=== PATIENT | female | born 1945 | race Caucasian/White ===

== ENCOUNTER → 2017-09-25 | Outpatient (CLI) | payer OTHER | END | disposition home or self-care (01) | LOC: PCVCIMAG 13:03 | DX: I08.0 Rheumatic disorders of both mitral and aortic valves (principal); I10 Essential (primary) hypertension; R00.2 Palpitations; E78.00 Pure hypercholesterolemia, unspecified; R53.83 Other fatigue; R94.31 Abnormal electrocardiogram [ECG] [EKG]; Z87.891 Personal history of nicotine dependence; Z79.899 Other long term (current) drug therapy; Z79.82 Long term (current) use of aspirin | CPT/HCPCS: 80061; 93005; 93306; G0463 ==

== ENCOUNTER → 2017-10-19 | Outpatient (CLI) | payer OTHER ==
[~2017-10-19] MED LIST: BENZOCAINE ONE 20% MUCOSAL SPRAY.; IOHEXOL 350 MG/ML 100 ML VIAL.; IOHEXOL 350 MG/ML 50 ML VIAL.; IV NORMAL SALINE 500ML BAG 500 ML; LIDOCAINE 1% Multi-Dose 50 ML VIAL.; MIDAZOLAM HCL/PF 2 MG/2 ML VIAL.; fentaNYL PF VIAL 100 MCG/2 ML VIAL
== END | disposition home or self-care (01) ==
LOC: PCVCINTER 08:59
DX: I25.10 Atherosclerotic heart disease of native coronary artery without angina pectoris (principal); I08.3 Combined rheumatic disorders of mitral, aortic and tricuspid valves; I70.0 Atherosclerosis of aorta; I70.1 Atherosclerosis of renal artery; Z87.891 Personal history of nicotine dependence
CPT/HCPCS: 36252; 93312; 93325; 93460; 93567; C1751; C1760; C1769; C1894; J1644; J2250; J3010; J7040; Q9967

== ENCOUNTER → 2018-01-15 | Outpatient (CLI) | payer OTHER | END | disposition home or self-care (01) | LOC: PCVCCLINIC 13:14 | PROVIDERS: ATTEND Internal Medicine Cardiovascular Disease | DX: I25.10 Atherosclerotic heart disease of native coronary artery without angina pectoris (principal); I10 Essential (primary) hypertension; E78.00 Pure hypercholesterolemia, unspecified; I35.0 Nonrheumatic aortic (valve) stenosis; R01.1 Cardiac murmur, unspecified; Z79.82 Long term (current) use of aspirin; Z87.891 Personal history of nicotine dependence | CPT/HCPCS: 93005; G0463 ==

== ENCOUNTER → 2018-09-26 | Outpatient (CLI) | payer OTHER ==
--- NOTE | 2018-09-26 14:42 | PCVCIMAG ---
APPROVED REPORT Study performed: 09/26/2018 12:58:57 EXAM: Comprehensive 2D, Doppler, and color-flow Echocardiogram Patient Location: Echo lab Status: routine BSA: 2.02 HR: 66 bpmBP: 126/82 mmHg Rhythm: Sinus arrhythmia with atrial ectopy Other Information Study Quality: Adequate Risk Factors: Cardiac Risk Factors: HTN, Hyperlipidemia Indications Aortic Valve Disease CAD 2D Dimensions IVSd: 14.08 (7-11mm)LVOT Diam: 20.00 (18-24mm) LVDd: 43.50 mm PWd: 12.82 (7-11mm)Ascending Ao: 37.76 (22-36mm) LVDs: 27.38 (25-40mm) Left Atrium: 41.43 (27-40mm) Aortic Root: 27.60 mm LV Single Plane 4CH: 45.66 % LV Single Plane 2CH: 49.11 % Biplane EF: 46.3 % Volumes Left Atrial Volume (Systole) Single Plane 4CH: 80.54 mLSingle Plane 2CH: 66.16 mL LA ESV Index: 40.00 mL/m2 Aortic Valve AoV Peak Herb.: 4.16 m/s AO Peak Gr.: 69.07 mmHgLVOT Max P.47 mmHg AO Mean Gr.: 41.09 mmHgLVOT Mean P.80 mmHg AO V2 Mean: 3.10 m/sLVOT Max V: 0.93 m/s AO V2 VTI: 104.02 cmLVOT Mean V: 0.65 m/s PETER (VTI): 0.75 [id number] V1 VTI: 25.21 cm PETER Vmax: 0.69 cm2 AI Vmax: 2.99 m/sSV (LVOT): 77.59 mL AI [place]: 2.30 m/s2 AI PHT: 379.08 ms Mitral Valve MV Peak Gr.: 12.34 mmHg MV Mean Gr.: 4.14 mmHgE/A Ratio: 0.8 MV Decel. Time: 355.25 ms MV E Max Herb.: 1.34 m/s MV A Herb.: 1.60 m/s MV Max Herb.: 1.76 m/s MV Mean Herb.: 0.91 m/s MV VTI: 591.53 mm MVA VTI: 131.16 mm2 MV PHT: 115.73 ms MVA (PHT): 1.90 cm2 IVRT: 69.20 ms TDI E/Lateral E': 22.33E/Medial E': 33.50 Medial E' Herb.: 0.04 m/s Lateral E' Herb.: 0.06 m/s Pulmonary Valve PV Peak Herb.: 0.88 m/sPV Peak Gr.: 3.11 mmHg Pulmonary Vein P Vein S: 0.56 m/sP Vein A: 0.33 m/s P Vein D: 0.36 m/sP Vein A Dur.: 117.6 msec P Vein S/D Ratio: 1.56 Tricuspid Valve RAP Estimate: 7.00 mmHg Left Ventricle The left ventricle is normal size. There is normal LV segmental wall motion. There is normal left ventricular wall thickness. Left ventricular systolic function is normal. The left ventricular ejection fraction is within the normal range. LVEF is 50-55%. Mild diastolic dysfunction is present (impaired relaxation pattern). Right Ventricle The right ventricle is normal size. The right ventricular systolic function is normal. Atria Left atrium is mildly dilated. Right atrium is mildly dilated. Aortic Valve Aortic valve is calcified. The maximum aortic valve gradient is 4.2 m/s and 69 mmHg. The mean valve gradient is 3.1 m/s and 41 mmHg. The calculated aortic valve area is 0.7 cm2. Mild aortic regurgitation. Severe aortic stenosis. Mitral Valve There is mitral annular calcification. Mitral valve leaflets are mild-moderately thickened. Mild mitral regurgitation. The maximum mitral valve gradient is 12 mmHg and the mean is 4 mmHg. The mitral valve area by PHT is 2.0 cm2. Mild mitral stenosis. Tricuspid Valve The tricuspid valve is normal in structure. Trace tricuspid regurgitation. Unable to assess PA pressure. Pulmonic Valve The pulmonary valve is normal in structure. Mild pulmonic regurgitation. Great Vessels The aortic root is normal in size. IVC is normal in size and collapses >50% with inspiration. Pericardium There is no pericardial effusion. <Conclusion> The left ventricle is normal size. LVEF is 50-55%. Mild diastolic dysfunction is present (impaired relaxation pattern). The right ventricle is normal size. Left atrium is mildly dilated. Right atrium is mildly dilated. Aortic valve is calcified. The maximum aortic valve gradient is 4.2 m/s and 69 mmHg. The mean valve gradient is 3.1 m/s and 41 mmHg. The calculated aortic valve area is 0.7 cm2. Mild aortic regurgitation. Severe aortic stenosis. There is mitral annular calcification. Mitral valve leaflets are mild-moderately thickened. Mild mitral regurgitation. Mild pulmonic regurgitation. The aortic root is normal in size. There is no pericardial effusion.
== END | disposition home or self-care (01) ==
LOC: PCVCIMAG 12:46
PROVIDERS: ATTEND Internal Medicine Cardiovascular Disease
DX: I08.8 Other rheumatic multiple valve diseases (principal); I25.10 Atherosclerotic heart disease of native coronary artery without angina pectoris
CPT/HCPCS: 93306